=== PATIENT | male | born 1965 | race Hispanic/Latino ===

== ENCOUNTER → 2024-02-14 | Day surgery (SDC) | payer OTHER ==
[~2024-02-14] MED LIST: CINNAMON500 MG; FIBER LAXATIVE625 MG PO; FIBER TABS625 MG PO; FISH OIL 1,0001 EAC7; FOLIC ACID0.4 MG PO; MAGNESIUM; MILK THISTLE175 M2; MULTI-VITAMIN1 EACH PO; PROPOFOL IV EMULSION 10 MG/ML 20 ML VIAL ONE
[2024-02-14] MEDS: LACTATED RINGER'S 1,000 ML ONE (09:50)
[2024-02-14 11:50] VITALS: BP 101/64; PULSE 61; RESP 18; O2SAT 97
== END | disposition home or self-care (01) ==
LOC: OR 08:37
PROVIDERS: ATTEND Internal Medicine Gastroenterology
DX: K70.30 Alcoholic cirrhosis of liver without ascites (principal); I85.10 Secondary esophageal varices without bleeding; K29.00 Acute gastritis without bleeding; K31.89 Other diseases of stomach and duodenum; K76.6 Portal hypertension; K21.9 Gastro-esophageal reflux disease without esophagitis; K44.9 Diaphragmatic hernia without obstruction or gangrene; Z86.010 Personal history of colon polyps; R16.1 Splenomegaly, not elsewhere classified; D69.6 Thrombocytopenia, unspecified; R00.1 Bradycardia, unspecified; G47.33 Obstructive sleep apnea (adult) (pediatric); R05.9 Cough, unspecified; Z91.041 Radiographic dye allergy status; Z01.810 Encounter for preprocedural cardiovascular examination; Z85.118 Personal history of other malignant neoplasm of bronchus and lung
CPT/HCPCS: 43239; 88305; 88342; 93005 ×2; J2704; J7121